=== PATIENT | female | born 1965 | race Native Hawaiian/Other Pacific Islander ===

== ENCOUNTER 2018-07-11 10:38 | Outpatient (CLI) | payer BC | END 2018-07-11 19:53 | disposition home or self-care (01) | LOC: MAMMO 10:38 | DX: Z12.31 Encounter for screening mammogram for malignant neoplasm of breast (principal) ==

== ENCOUNTER 2019-11-02 08:17 | Outpatient (CLI) | payer BC | END 2019-11-02 19:43 | disposition home or self-care (01) | LOC: MAMMO 08:17 | DX: Z12.31 Encounter for screening mammogram for malignant neoplasm of breast (principal) ==

== ENCOUNTER 2020-12-30 09:03 | Outpatient (CLI) | payer BC | END 2020-12-30 19:11 | disposition home or self-care (01) | LOC: RAD 09:03 | PROVIDERS: ATTEND Registered Nurse | DX: Z12.31 Encounter for screening mammogram for malignant neoplasm of breast (principal) ==